=== PATIENT | male | born 1935 | race Caucasian/White ===

== ENCOUNTER 2016-12-20 03:19 | Observation (INO) | payer MEDICARE, BC ==
[2016-12-20] VITALS (8 sets, daily range): BP systolic 117–165; BP diastolic 60–92; PULSE 52–60; RESP 15–18; TEMP 97.8–98.1; O2SAT 94–96
[~2016-12-20 03:19] MED LIST: ASPI325T PO; NITR0.4S SL
[2016-12-20] MEDS ORDERED: ASPI325T PO (03:34)
[2016-12-20] MEDS ORDERED: NITR1SUB3 SL (03:34)
[2016-12-20] MEDS ORDERED: SODIUM CHLORIDE 0.9% FLUSH 10 ML FLUSH IVF PRN ×2 (03:45→04:45)
[2016-12-20] MEDS ORDERED: ASPIRIN 81 MG CHEW TAB PO ONE (03:45)
--- NOTE | 2016-12-20 03:47 | PD ---
HPI Chief Complaint: Pain: Acute or Chronic Time Seen by Provider: 03:43 Travel History International Travel<30 days: No Contact w/Intl Traveler<30days: No Traveled to known affect area: No History of Present Illness HPI 81-year-old male presents to the emergency department by private transportation in the care of his significant other for episode of chest pressure that radiated across his anterior chest that awakened him from sleep just prior to arrival to the emergency department. Patient states pain at the time was 9/10 in intensity. Patient took one sublingual nitroglycerin and pain has resolved and discomfort now is 0/10 in intensity. Patient states discomfort felt like someone was sitting on his chest. Patient denies any referred neck jaw back shoulder arm or abdominal pain. Patient denied any associated shortness of breath sweats nausea and/or vomiting. Patient denies personal history of CAD hypertension dyslipidemia diabetes or tobaccoism. Patient denies any previous surgery except for hip surgery. Patient states he may have had a cardiac catheterization in the past that was reportedly normal. 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 Garrett. Patient states he has not seen for coronary vessel disease. Patient did take his daily aspirin 325 mg just prior to bedtime around 11 PM but does not take any aspirin prior to arrival to the emergency department this morning. Patient has had no injury and no recent respiratory illness. No recent long distance travel or protracted bedrest her surgical procedure. Patient denies pleuritic chest pain. Patient denies abdominal pain. 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 [facility]LY [facility] Past Medical History Narrative Medical GERD, hip replacement, stress test 2013, tonsillectomy, herniorrhaphy; no tobacco use; nursing notes reviewed Hx Anticoagulant Therapy: Yes (ASPIRIN) Heart Rhythm Problems: No Cancer: No Cardiac Catheterization: No Cardiovascular Problems: No High Cholesterol: No Congestive Heart Failure: No Diabetes: No Diminished Hearing: No Endocrine: No GERD: Yes Genitourinary: No Immune Disorder: No Musculoskeletal: Yes (HIP REPLACEMENT) Neurologic: No Reproductive: No Respiratory: No ?: Not Past Surgical History Coronary Artery Bypass Graft: No Joint Replacement: Yes (BILAT HIP) Tonsillectomy: Yes Other Surgery: Yes (LEFT INQUINAL HERNIA REPAIR) Social History Alcohol Use: Yes (1 RUM DAILY) Tobacco Use: No Substance Use: No Allergies-Medications (Allergen,Severity, Reaction): Coded Allergies: No Known Allergies (Unverified , 11/03/15) Reported Meds & Prescriptions Reported Meds & Active Scripts Active Reported Aspirin 325 Mg Tab 325 Mg PO DAILY Nitroglycerin SL (Nitroglycerin) 0.4 Mg Subl 0.4 Mg SL DIRECTED PRN ONE TABLET UNDER THE TONGUE NEEDED FOR CHEST PAIN, MAY REPEAT EVERY FIVE MINUTES FOR A TOTAL OF 3 DOSES OR CALL 911 IF NO RELIEF Nitrostat (Nitroglycerin) 0.4 Mg Subl 0.4 Mg SL PRN PRN 1 TAB SL EVERY 5 MINS X 3 PRN CHEST PAIN Aspirin 325 Mg Tab (Aspirin) 325 Mg Tab 325 Mg PO DAILY Review of Systems Except as stated in HPI: all other systems reviewed are Neg Physical Exam Narrative GENERAL: Well-developed well-nourished male in no acute distress no respiratory distress SKIN: Warm and dry. HEAD: Normocephalic. EYES: No scleral icterus. No injection or drainage. NECK: Supple, trachea midline. No JVD or lymphadenopathy. CARDIOVASCULAR: Regular rate and rhythm without murmurs, gallops, or rubs. Radial and dorsalis pedis pulses 2+ to palpation bilaterally RESPIRATORY: Breath sounds equal bilaterally. No accessory muscle use. GASTROINTESTINAL: Abdomen soft, non-tender, nondistended. MUSCULOSKELETAL: No cyanosis, or edema. BACK: Nontender without obvious deformity. No CVA tenderness. Data Data Last Documented VS Vital Signs Date Time Temp Pulse Resp B/P Pulse Ox O2 Delivery O2 Flow Rate FiO2 12/20/16 03:32 55 18 165/92 96 Room Air 12/20/16 03:24 98.0 Orders Electrocardiogram (12/20/16 03:43) Ckmb (Isoenzyme) Profile (12/20/16 03:43) Complete Blood Count With Diff (12/20/16 03:43) Comprehensive Metabolic Panel (12/20/16 03:43) Magnesium (Mg) (12/20/16 03:43) Prothrombin Time / Inr (Pt) (12/20/16 03:43) Act Partial Throm Time (Ptt) (12/20/16 03:43) Troponin I (12/20/16 03:43) Lipase (12/20/16 03:43) Chest, Single Ap (12/20/16 03:43) Ecg Monitoring (12/20/16 03:43) Bilateral Bp Monitoring (12/20/16 03:43) Iv Access Insert/Monitor (12/20/16 03:43) Oximetry (12/20/16 03:43) MDM Medical Decision Making Medical Screen Exam Complete: Yes Emergency Medical Condition: Yes Medical Record Reviewed: Yes Interpretation(s) EKG sinus bradycardia rate 55 first-degree AV block no acute ST elevation or injury pattern change noted age-indeterminate Q-wave inferiorly Differential Diagnosis Chest pain, ACS, myocardial infarction, esophageal spasm, biliary colic, pancreatitis, aortic dissection, aneurysm Narrative Course 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 EKG performed no acute injury pattern change noted. Leonila Zavala MD December 20, 2016 03:47
[2016-12-20 03:58] LABS: AUTOMATED NEUTROPHIL # 2.3 TH/MM3 (1.8-7.7); BASOPHIL % 0.7 % (0.0-2.0); EOSINOPHIL # 0.2 TH/MM3 (0-0.4); EOSINOPHIL % 4.5 % (0.0-4.0); HEMATOCRIT 40.7 % (39.0-51.0); HEMO FLAGS DIFF FINAL; LYMPH % 23.5 % (9.0-44.0); MEAN CELL VOLUME 93.6 FL (80.0-100.0); MEAN CORPUSCULAR HGB CONC 33.1 % (32.0-36.0); MONO % 17.9 % (0.0-8.0); NEUT % 53.4 % (16.0-70.0); PLATELET COUNT 203 TH/MM3 (150-450); RED BLOOD COUNT 4.34 MIL/MM3 (4.50-5.90); RED CELL DISTRIBUTION WIDTH 13.8 % (11.6-17.2); WHITE BLOOD COUNT 4.3 TH/MM3 (4.0-11.0)
[2016-12-20 04:07] LABS: APTT (PATIENT) 26.2 SEC (24.3-30.1); PROTHROMBIN TIME - PATIENT 10.7 SEC (9.8-11.6)
[2016-12-20 04:15] LABS: ALT (GPT) 24 U/L (12-78); ANION GAP 8 MEQ/L (5-15); AST (GOT) 9 U/L (15-37); BICARBONATE 27.1 MEQ/L (21.0-32.0); BLOOD UREA NITROGEN 23 MG/DL (7-18); CHLORIDE 107 MEQ/L (98-107); GLOMERULAR FILTRATION RATE 75 ML/MIN (>89); MAGNESIUM 2.6 MG/DL (1.5-2.5); POTASSIUM 4.2 MEQ/L (3.5-5.1); SODIUM (NA) 142 MEQ/L (136-145)
[2016-12-20 04:19] LABS: ALKALINE PHOSPHATASE 96 U/L (45-117); CREATINE KINASE 111 U/L (39-308); TOTAL BILIRUBIN ADULT 0.4 MG/DL (0.2-1.0)
[2016-12-20 04:31] LABS: CKMB 3.1 NG/ML (0.5-3.6)
--- NOTE | 2016-12-20 04:32 | RADRPT ---
EXAM DATE/TIME: 12/20/2016 03:59 [facility] COMPARISON: CHEST SINGLE AP, November 03, 2015, 23:44. INDICATIONS : Chest pain. MEDICAL HISTORY : Chronic obstructive pulmonary disease. SURGICAL HISTORY : None. ENCOUNTER: Initial ACUITY: 1 day PAIN SCORE: 4/10 LOCATION: Bilateral chest FINDINGS: 2 portable frontal views of the chest demonstrate the lungs to be symmetrically aerated without evide nce of mass, infiltrate or effusion. The lungs are hyperinflated bilaterally. The cardiomediastinal c ontours are unremarkable. Osseous structures are intact. CONCLUSION: Hyperinflation suggesting COPD. Basil Klein Jr., MD on December 20, 2016 at 4:30 Board Certified Radiologist. This report was verified electronically.
[2016-12-20] MEDS ORDERED: ACETAMINOPHEN/HYDROcodone 325 MG/7.5 MG TAB PO PRN (04:45)
[2016-12-20] MEDS ORDERED: NITROGLYCERIN 0.4 MG SL 25 TABS/BTL SL PRN (04:45)
[2016-12-20] MEDS ORDERED: MORPHINE SULFATE 4 MG/ML INJ IV PRN (04:45)
[2016-12-20] MEDS ORDERED: ACETAMINOPHEN 500 MG CPLT PO PRN (04:45)
[2016-12-20] MEDS ORDERED: SODIUM CHLORIDE 0.9% FLUSH 10 ML FLUSH PRN (04:45)
[2016-12-20] MEDS ORDERED: ONDANSETRON HCL 4 MG/2 ML VIAL IV PRN (04:45)
[2016-12-20 07:09] LABS: CREATINE KINASE 68 U/L (39-308)
--- NOTE | 2016-12-20 08:09 | HHI.HP ---
HPI Primary Care Physician Dat Brand M.D. Chief Complaint Chest pressure History of Present Illness 81-year-old male with no significant medical history presents to the emergency room for further evaluation of chest pressure. Onset 1:30 AM, chest pressure woke him from sleep. Location substernal. Characterized as a pressure and tightness as though "someone was sitting on my chest.". Never had chest pain in the past. No associated symptoms. Position, movement, or breathing did not make pain better or worse. Duration approximately 3-4 minutes. No known precipitating factors. Relieving factors with one nitroglycerin tablet. Follows with Dr. Suzanne Cruz and endorses chemical stress test 6 weeks ago that was normal. Currently he has mild chest discomfort since initial episode described as a dull ache. Review of Systems General: No fatigue,weakness, fever, chills, recent illness, recent travel, or change in appetite HEENT: No LESLIE, no vision changes, no nasal congestion or drainage, no dysphasia CV: As stated above. Continues to have dull chest discomfort since initial episode described as dull however denies pain, pressure, or tightness. No intermittent leg pain, palpitations, or dizziness. RESP: No SOB, cough, wheeze, or recent URI. No history of COPD, asthma, or apnea. GI: No nausea, vomiting, bowel changes, diarrhea, constipation, pain, distention , melena, blood in the stool. : No dysuria, urgency, frequency EXT: No lower leg edema, no paraesthesias MS: No discomfort or change in ROM. 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 NEURO: No change in memory, dizziness, difficulty with balance, LOC, motor/ sensory deficits PSYCH: No anxiety or depression SKIN: No rashes, no concerning lesions Past Family Social History Allergies: Coded Allergies: No Known Allergies (Unverified , 11/03/15) Past Medical History GERD Past Surgical History Bilateral Hip replacement, tonsillectomy, left inguinal hernia repair Reported Medications Active Reported Aspirin 325 Mg Tab 325 Mg PO DAILY Nitroglycerin SL (Nitroglycerin) 0.4 Mg Subl 0.4 Mg SL DIRECTED PRN ONE TABLET UNDER THE TONGUE NEEDED FOR CHEST PAIN, MAY REPEAT EVERY FIVE MINUTES FOR A TOTAL OF 3 DOSES OR CALL 911 IF NO RELIEF Active Ordered Medications Current Medications Medications (Trade) Dose Ordered Sig/Ace Route Start Time Stop Time Status Last Admin (Tylenol) 500 mg Q4H PRN PO 12/20/16 04:45 ([place] 7.5-325 Mg) 1 tab Q4H PRN PO 12/20/16 04:45 (Morphine Inj) 2 mg Q4H PRN IV 12/20/16 04:45 (Zofran Inj) 4 mg Q6H PRN IV 12/20/16 04:45 (Nitrostat Sl) 0.4 mg Q5M PRN SL 12/20/16 04:45 (Aspirin) 325 mg DAILY PO 12/20/16 09:00 (Aspirin) 325 mg DAILY PO 12/20/16 09:00 UNV Family History Noncontributory for early onset cardiovascular disease. Social History No known diabetes, hypertension, or hyperlipidemia. Quit smoking 25 years ago. Prior to quitting smoke 1 pack daily. Rare alcohol use, occasionally will have one beer or one shot of rum. Denies any illegal drug use. 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 Past cardiac testing Patient's collar cutter is Dr. Garrett. Endorses chemical stress test completed 6 weeks ago which was unremarkable. Cardiac catheterization, 5 years ago, no significant cardiovascular disease (reported by Dr. Garrett). Physical Exam Vital Signs Vital Signs Date Time Temp Pulse Resp B/P Pulse Ox O2 Delivery O2 Flow Rate FiO2 12/20/16 06:36 57 12/20/16 04:49 95 12/20/16 04:16 54 16 150/77 95 Room Air 12/20/16 03:44 99 Room Air 12/20/16 03:32 55 18 165/92 96 Room Air 12/20/16 03:31 58 12/20/16 03:24 98.0 60 15 162/81 94 Room Air Physical Exam GENERAL: Alert WN, WD, NAD, pleasant, elderly male who appears younger than stated age HEAD: NC, AT EYES: Sclera clear, conjunctiva without injection, pupils equal and round ENT: Mucous membranes pink and moist NECK: Supple, no masses, trachea midline CV: Bradycardic rate, regular, without murmur, rub, gallop, no JVD, S1-S2 no S3- S4. No carotid bruits. RESP: Clear lungs throughout bilateral, no crackles, wheeze, rhonchi, symmetrical chest rise, nonlabored, able to speak in full sentences ABD: Soft, NT, ND, no masses, positive bowel tones BACK: No CVAT, no scoliosis EXT: Pulses +24, no dependent edema MS: Normal tone 4 extremities, nontender, no obvious deformities, full range of motion NEURO: CN II through CN XII grossly intact, motor strength 5/5, gait WNL PSYCH: A+O 3, pleasant affect, appropriate speech, appropriate mood and affect , insight and judgment SKIN: Normal turgor, normal texture, no lesions, no rashes, brisk cap refill, even hair distribution Laboratory Laboratory Tests Test 12/20/16 12/20/16 03:40 06:24 White Blood Count 4.3 Red Blood Count 4.34 Hemoglobin 13.4 Hematocrit 40.7 Mean Corpuscular Volume 93.6 Mean Corpuscular Hemoglobin 31.0 Mean Corpuscular Hemoglobin 33.1 Concent Red Cell Distribution Width 13.8 Platelet Count 203 Mean Platelet Volume 8.3 Neutrophils (%) (Auto) 53.4 Lymphocytes (%) (Auto) 23.5 Monocytes (%) (Auto) 17.9 Eosinophils (%) (Auto) 4.5 Basophils (%) (Auto) 0.7 Neutrophils # (Auto) 2.3 Lymphocytes # (Auto) 1.0 Monocytes # (Auto) 0.8 Eosinophils # (Auto) 0.2 Basophils # (Auto) 0.0 CBC Comment DIFF FINAL Differential Comment Prothrombin Time 10.7 Prothromb Time International 1.0 Ratio Activated Partial 26.2 Thromboplast Time Sodium Level 142 Potassium Level 4.2 Chloride Level 107 Carbon Dioxide Level 27.1 Anion Gap 8 Blood Urea Nitrogen 23 Creatinine 0.96 Estimat Glomerular Filtration 75 Rate Random Glucose 102 Calcium Level 9.2 Magnesium Level 2.6 Total Bilirubin 0.4 Aspartate Amino Transf 9 (AST/SGOT) Alanine Aminotransferase 24 (ALT/SGPT) Alkaline Phosphatase 96 Total Creatine Kinase 111 68 Creatine Kinase MB 3.1 Troponin I LESS THAN 0.02 LESS THAN 0.02 Total Protein 6.9 Albumin 4.1 Lipase 149 Result Diagram: 12/20/1633912/20/16339 Imaging Last Impressions Chest X-Ray 12/20/16342 Signed Impressions: Service Date/Time: December 03:59 - CONCLUSION: Hyperinflation suggesting COPD. Basil Klein Jr., MD Course EKGs 3 EKGs show normal sinus bradycardia, left axis deviation, no ST or T-segment changes Assessment and Plan Assessment and Plan #1 Chest painadmitted to chest pain center. Ruled out with 3 sets of EKGs, cardiac enzymes, and monitored overnight. Seen and evaluated by Dr. Yahaira Morse. Spoke with patient's collar cutter, Dr. Garrett, regarding patient' s admission to chest pain center. Dr. Garrett reviewed patient's record including cardiac catheterization completed 5 years ago and most recent stress test. Dr. Garrett okay for patient to be discharged and follow up with him in 1 week. This is been discussed with patient in length and he is agreeable to plan of care. Encouraged patient to return to the emergency room if chest pain returns or for any concern over chest discomfort. Светлана Schwarz December 20, 2016 08:09
[2016-12-20] MEDS ORDERED: SODIUM CHLORIDE 0.9% FLUSH 10 ML FLUSH IV FLUSH SCH (09:00)
[2016-12-20] MEDS ORDERED: ASPIRIN 325 MG TAB PO SCH ×2 (09:00)
[2016-12-20] MEDS ORDERED: SODIUM CHLORIDE 0.9% FLUSH 10 ML FLUSH SCH (09:00)
--- NOTE | 2016-12-20 10:19 | HHI.DCPOC ---
Discharge Care Plan Diagnosis: (1) Atypical chest pain Goals to Promote Your Health * To prevent worsening of your condition and complications * To maintain your health at the optimal level Directions to Meet Your Goals Take your medications as prescribed Follow your dietary instruction Follow activity as directed Keep your appointments as scheduled Take your immunizations and boosters as scheduled If your symptoms worsen call your PCP, if no PCP go to Urgent Care Center or Emergency Room Smoking is Dangerous to Your Health. Avoid second hand smoke Call the 24-hour hour crisis hotline for domestic abuse at Светлана Schwarz December 20, 2016 10:19
[2016-12-20 11:05] LABS: CREATINE KINASE 87 U/L (39-308)
--- NOTE | 2016-12-21 09:28 | EKG ---
Date Performed: 12/20/2016 Time Performed: 09:46:41 PTAGE: 81 years EKG: SINUS BRADYCARDIA MARKED LEFT AXIS DEVIATION ABNORMAL ECG Since PREVIOUS TRACING , no significant change noted PREVIOUS TRACIN12/20/2016 06.51 DOCTOR: Yahaira Morse Interpretating Date/Time 12/21/2016 09:28:11
--- NOTE | 2016-12-21 09:29 | EKG ---
Date Performed: 12/20/2016 Time Performed: 03:33:19 PTAGE: 81 years EKG: SINUS BRADYCARDIA WITH FIRST DEGREE AV BLOCK BORDERLINE LEFT AXIS DEVIATION LOW QRS VOLTAGE IN EXTREMITY LEADS ABNORMAL ECG Since PREVIOUS TRACING , no significant change noted PREVIOUS TRACIN11/03/2015 22.48 DOCTOR: Yahaira Morse Interpretating Date/Time 12/21/2016 09:28:37
--- NOTE | 2016-12-21 09:29 | EKG ---
Date Performed: 12/20/2016 Time Performed: 06:51:23 PTAGE: 81 years EKG: SINUS BRADYCARDIA LOW QRS VOLTAGE IN EXTREMITY LEADS BORDERLINE ECG Since PREVIOUS TRACING , no significant change noted PREVIOUS TRACIN12/20/2016 03.33 DOCTOR: Yahaira Morse Interpretating Date/Time 12/21/2016 09:28:25
== END 2016-12-20 13:01 | disposition home or self-care (01) ==
LOC: NEPC 03:19 → NEDA 04:42 → NEPHCDU 05:40
PROVIDERS: ADMIT Internal Medicine Cardiovascular Disease; ATTEND Internal Medicine Cardiovascular Disease
DX: R07.89 Other chest pain (principal); K21.9 Gastro-esophageal reflux disease without esophagitis; Z96.643 Presence of artificial hip joint, bilateral; Z79.82 Long term (current) use of aspirin; Z87.891 Personal history of nicotine dependence
CPT/HCPCS: 71010; 80053; 82550; 82552; 83690; 83735; 84484; 85025; 85610; 85730; 93005; 99285; G0378

== ENCOUNTER 2017-09-26 17:06 | Emergency (ER) | payer MEDICARE, BC ==
[~2017-09-26] VITALS: Ht 180.3 cm; Wt 76.0 kg
[~2017-09-26 17:06] MED LIST changes: -NITR0.4S SL; +NITR1SUB3 SL
[2017-09-26 17:12] VITALS: BP 134/70; PULSE 24; PULSE 67; RESP 24; TEMP 98.2; O2SAT 99
[2017-09-26] MEDS ORDERED: ASPI-516 CHEW (17:23)
[2017-09-26 17:29] VITALS: O2SAT 99
[2017-09-26] MEDS ORDERED: MORPHINE SULFATE 2 MG/ML INJ IV PUSH ONE (17:30)
[2017-09-26] MEDS ORDERED: ONDANSETRON HCL 4 MG/2 ML VIAL IVP ONE (17:30)
[2017-09-26] MEDS ORDERED: SODIUM CHLORIDE 0.9% FLUSH 10 ML FLUSH IV FLUSH PRN (17:30)
--- NOTE | 2017-09-26 17:31 | PD ---
HPI Chief Complaint: Abdominal Pain Time Seen by Provider: 17:23 Travel History International Travel<30 days: No Contact w/Intl Traveler<30days: No Traveled to known affect area: No History of Present Illness HPI Patient is an 82-year-old male presents to emergency department for evaluation of left inguinal swelling for the past hour and a half, has a history of inguinal hernia repair on the same side. Denies any nausea vomiting or diarrhea but states that he has been having significant pain whenever he manipulates it since then. States this never happened to him like this before. Denies any chest pain shortness of breath diarrhea constipation or blood in the stool. Symptoms have been constant for the past hour and a half, context and associated signs and symptoms as above PFSH Past Medical History Hx Anticoagulant Therapy: Yes (ASPIRIN) Heart Rhythm Problems: No Cancer: No Cardiac Catheterization: Yes (8 yrs ago- states it was ok) Cardiovascular Problems: Yes (heart cath 8 yrs ago) High Cholesterol: No Congestive Heart Failure: No Diabetes: No Diminished Hearing: No Endocrine: No Gastrointestinal Disorders: No GERD: Yes Genitourinary: No Immune Disorder: No Musculoskeletal: Yes (HIP REPLACEMENT) Neurologic: No Reproductive: No Respiratory: No Tetanus Vaccination: Unknown Past Surgical History Coronary Artery Bypass Graft: No Joint Replacement: Yes (BILAT HIP) Tonsillectomy: Yes Other Surgery: Yes (LEFT INQUINAL HERNIA REPAIR) Social History Alcohol Use: Yes (1 RUM DAILY) Tobacco Use: No Substance Use: No Allergies-Medications (Allergen,Severity, Reaction): Coded Allergies: No Known Allergies (Unverified Adverse Reaction, Unknown, 09/26/17) Reported Meds & Prescriptions Reported Meds & Active Scripts Active Reported Aspirin 81 Mg Chew 81 Mg CHEW DAILY Review of Systems Except as stated in HPI: all other systems reviewed are Neg Physical Exam Narrative GENERAL: WD/WN in nad SKIN: Focused skin assessment warm/dry. HEAD: Atraumatic. Normocephalic. EYES: Pupils equal and round. No scleral icterus. No injection or drainage. ENT: No nasal bleeding or discharge. Mucous membranes pink and moist. NECK: Trachea midline. No JVD. CARDIOVASCULAR: Regular rate and rhythm. No murmur appreciated. RESPIRATORY: No accessory muscle use. Clear to auscultation. Breath sounds equal bilaterally. GASTROINTESTINAL: Abdomen soft, non-tender, nondistended. Hepatic and splenic margins not palpable. There is fairly firm inguinal hernia on the left side, no overlying skin changes, fairly tender to palpation as well. MUSCULOSKELETAL: No obvious deformities. No clubbing. No cyanosis. No edema. NEUROLOGICAL: Awake and alert. No obvious cranial nerve deficits. Motor grossly within normal limits. Normal speech. PSYCHIATRIC: Appropriate mood and affect; insight and judgment normal. Data Data Last Documented VS Vital Signs Date Time Temp Pulse Resp B/P (MAP) Pulse Ox O2 Delivery O2 Flow Rate FiO2 09/26/17 20:18 09/26/17 19:20 67 18 94 Room Air 09/26/17 17:12 98.2 Orders Orders Complete Blood Count With Diff (09/26/17 17:27) Comprehensive Metabolic Panel (09/26/17 17:27) Lipase (09/26/17 17:27) Lactic Acid (09/26/17 17:27) Prothrombin Time / Inr (Pt) (09/26/17 17:27) Act Partial Throm Time (Ptt) (09/26/17 17:27) Iv Access Insert/Monitor (09/26/17 17:27) Ecg Monitoring (09/26/17 17:27) Oximetry (09/26/17 17:27) Ondansetron Inj (Zofran Inj) (09/26/17 17:30) Sodium Chloride 0.9% Flush (Ns Flush) (09/26/17 17:30) Electrocardiogram (09/26/17 17:27) Chest, Single Ap (09/26/17 17:27) Morphine Inj (Morphine Inj) (09/26/17 17:30) Hydromorphone Pf Inj (Dilaudid Pf Inj) (09/26/17 19:00) Ed Discharge Order (09/26/17 20:05) Labs Laboratory Tests Test 09/26/17 17:33 09/26/17 17:35 Lactic Acid Level 1.4 mmol/L White Blood Count 6.1 TH/MM3 Red Blood Count 4.04 MIL/MM3 Hemoglobin 13.3 GM/DL Hematocrit 38.5 % Mean Corpuscular Volume 95.5 FL Mean Corpuscular Hemoglobin 33.0 PG Mean Corpuscular Hemoglobin Concent 34.6 % Red Cell Distribution Width 14.4 % Platelet Count 258 TH/MM3 Mean Platelet Volume 8.1 FL Neutrophils (%) (Auto) 65.7 % Lymphocytes (%) (Auto) 16.8 % Monocytes (%) (Auto) 15.7 % Eosinophils (%) (Auto) 1.3 % Basophils (%) (Auto) 0.5 % Neutrophils # (Auto) 4.0 TH/MM3 Lymphocytes # (Auto) 1.0 TH/MM3 Monocytes # (Auto) 1.0 TH/MM3 Eosinophils # (Auto) 0.1 TH/MM3 Basophils # (Auto) 0.0 TH/MM3 CBC Comment DIFF FINAL Differential Comment Prothrombin Time 10.7 SEC Prothromb Time International Ratio 1.1 RATIO Activated Partial Thromboplast Time 24.5 SEC Blood Urea Nitrogen 30 MG/DL Creatinine 1.02 MG/DL Random Glucose 138 MG/DL Total Protein 7.3 GM/DL Albumin 4.3 GM/DL Calcium Level 8.8 MG/DL Alkaline Phosphatase 99 U/L Aspartate Amino Transf (AST/SGOT) 18 U/L Alanine Aminotransferase (ALT/SGPT) 28 U/L Total Bilirubin 0.4 MG/DL Sodium Level 134 MEQ/L Potassium Level 4.0 MEQ/L Chloride Level 100 MEQ/L Carbon Dioxide Level 25.5 MEQ/L Anion Gap 9 MEQ/L Estimat Glomerular Filtration Rate 70 ML/MIN Lipase 115 U/L MDM Medical Decision Making Medical Screen Exam Complete: Yes Emergency Medical Condition: Yes Differential Diagnosis Inguinal hernia, entrapped hernia, strangulate hernia unlikely. Narrative Course Patient room to the emergency department, after morphine attempted to reduce the hernia and unsuccessfully. The patient had basic labs sent which were reassuring. He certainly is not obstipated has no fever and I doubt strangulation in this patient. He was given a dose of Dilaudid and ice pack was applied for some time, on repeat attempt the patient actually did have fairly easily reduced hernia. Over the next half an hour to 45 minutes as he was washed his pain completely resolved and he states he is feeling much better , discussed symptomatic management, use of a inguinal hernia brace which he can buy [id number]. He was quite grateful, discussed follow-up with general surgeon or return to the criteria. Diagnosis Primary Impression: Hernia, inguinal Referrals: Greg Moore MD Disposition: 01 DISCHARGE HOME Condition: Stable Dennys Cheng MD Sep 26, 2017 17:31
[2017-09-26 17:56] LABS: BASOPHIL % 0.5 % (0.0-2.0); EOSINOPHIL # 0.1 TH/MM3 (0-0.4); EOSINOPHIL % 1.3 % (0.0-4.0); HEMATOCRIT 38.5 % (39.0-51.0); HEMOGLOBIN 13.3 GM/DL (13.0-17.0); LYMPH % 16.8 % (9.0-44.0); MEAN CELL VOLUME 95.5 FL (80.0-100.0); MEAN CORPUSCULAR HGB CONC 34.6 % (32.0-36.0); MEAN PLATELET VOLUME 8.1 FL (7.0-11.0); MONO % 15.7 % (0.0-8.0); NEUT % 65.7 % (16.0-70.0); PLATELET COUNT 258 TH/MM3 (150-450); RED BLOOD COUNT 4.04 MIL/MM3 (4.50-5.90); RED CELL DISTRIBUTION WIDTH 14.4 % (11.6-17.2); WHITE BLOOD COUNT 6.1 TH/MM3 (4.0-11.0)
[2017-09-26 18:03] LABS: INTERNATIONAL NORMALIZED RATIO 1.1 RATIO; PROTHROMBIN TIME - PATIENT 10.7 SEC (9.8-11.6)
[2017-09-26 18:12] LABS: ALBUMIN 4.3 GM/DL (3.4-5.0); ALT (GPT) 28 U/L (12-78); AST (GOT) 18 U/L (15-37); BICARBONATE 25.5 MEQ/L (21.0-32.0); BLOOD UREA NITROGEN 30 MG/DL (7-18); CALCIUM 8.8 MG/DL (8.5-10.1); CHLORIDE 100 MEQ/L (98-107); CREATININE 1.02 MG/DL (0.60-1.30); GLOMERULAR FILTRATION RATE 70 ML/MIN (>89); GLUCOSE,RANDOM 138 MG/DL (74-106); SODIUM (NA) 134 MEQ/L (136-145)
[2017-09-26 18:14] LABS: ALKALINE PHOSPHATASE 99 U/L (45-117); TOTAL BILIRUBIN ADULT 0.4 MG/DL (0.2-1.0); TOTAL PROTEIN 7.3 GM/DL (6.4-8.2)
--- NOTE | 2017-09-26 18:21 | RADRPT ---
EXAM DATE/TIME: 09/26/2017 17:44 [facility] COMPARISON: CHEST SINGLE AP, December 20, 2016, 3:59. INDICATIONS : Evaluate for free air. MEDICAL HISTORY : Chronic obstructive pulmonary disease. SURGICAL HISTORY : None. ENCOUNTER: Initial ACUITY: 1 day PAIN SCORE: 0/10 LOCATION: Bilateral chest FINDINGS: A single view of the chest demonstrates the lungs to be symmetrically aerated without evidence of mas s, infiltrate or effusion. Minimal basilar atelectasis. Tortuous aorta. CONCLUSION: 1. Mild basilar atelectasis. Tortuous aorta. No effusion. Martin Lambert MD on September 26, 2017 at 18:18 Board Certified Radiologist. This report was verified electronically.
[2017-09-26] MEDS ORDERED: HYDROmorphone HCL PF 2 MG/ML VIAL IV PUSH ONE (19:00)
[2017-09-26 19:20] VITALS: BP 142/74; PULSE 67; RESP 18; O2SAT 94
--- NOTE | 2017-09-28 00:41 | EKG ---
Date Performed: 09/26/2017 Time Performed: 17:33:32 PTAGE: 82 years EKG: Sinus rhythm WITH OCCASIONAL VENTRICULAR PREMATURE COMPLEXES MARKED LEFT AXIS DEVIATION ABNORMAL ECG PREVIOUS TRACING : 12/20/2016 09.46 Since the prior tracing, there has been no significant [place] DOCTOR: Wicho Phillips Interpretating Date/Time 09/28/2017 00:39:03
== END 2017-09-26 20:41 | disposition home or self-care (01) ==
LOC: NEPD 17:06
DX: K40.91 Unilateral inguinal hernia, without obstruction or gangrene, recurrent (principal); R94.31 Abnormal electrocardiogram [ECG] [EKG]; K21.9 Gastro-esophageal reflux disease without esophagitis; Z79.82 Long term (current) use of aspirin; Z96.643 Presence of artificial hip joint, bilateral
CPT/HCPCS: 71045; 80053; 83605; 83690; 85025; 85610; 85730; 93005; 96374; 96375; 99285; J1170; J2270; J2405